=== PATIENT | female | born 1970 | race Caucasian/White ===

== ENCOUNTER 2020-04-06 14:17 | Emergency (ER) | payer MEDICAID ==
--- NOTE | 2020-04-06 16:10 | EDM.PDOC ---
ED HPI GENERAL MEDICAL PROBLEM - General Chief Complaint: Back Pain or Injury Stated Complaint: HIP AND PELVIS PAIN FELL 2 WEEKS AGO Time Seen by Provider: 04/06/20 14:18 Source of Information: Reports: Patient, RN Notes Reviewed History Limitations: Reports: No Limitations - History of Present Illness INITIAL COMMENTS - FREE TEXT/NARRATIVE: Patient is a 49-year-old female presenting to the emergency department with complaints of a 2-week history of lumbar and sacral pain with radiation down her bilateral legs as well as intermittent low back spasms. She states about 2 wee ks ago, she had a fall on the ice. She landed on her left side hitting her left elbow. She does not think that she hit her left hip very hard, however since that time she has had pain in her low back. She does have occasional numbness in her bilateral calfs, however this is normal for her. Pain radiates down the bilateral lower extremities. Denies any bowel or bladder dysfunction. She does have a history significant for spinal fusion in 2012. States this was done at the neurosurgery center in [place]. She does not have a primary care provider. She has been using Tylenol for the pain which she states sometimes works, but at times the pain gets too bad where Tylenol does not help. Lower Back Pain Score (Numeric/FACES): 8 Groin Pain Score (Numeric/FACES): 6 - Related Data Allergies Allergy/AdvReac Type Severity Reaction Status Date / Time metoclopramide [From Reglan] Allergy Severe Rash Verified 04/06/20 14:42 pseudoephedrine Allergy Severe Confusion Verified 04/06/20 14:42 [From Sudafed] Home Meds: Home Meds Cyclobenzaprine [Flexeril] 10 mg PO TID PRN #10 tab 04/06/20 [Rx] predniSONE [Prednisone] 20 mg PO ASDIRECTED #15 tablet 04/06/20 [Rx] Past Medical History Respiratory History: Reports: Asthma Other Respiratory History: dooes not use inhaler [employer] MECHANICAL History: Reports: Fibroids, Other (See Below) Other [employer]CH[employer] History: had partial hysterectomy-uterus removed; has problems with cysts Psychiatric History: Reports: Anxiety Social & Family History - Tobacco Use Tobacco Use Status *Q: Current Every Day Tobacco User Years of Tobacco use: 5 Packs/Tins Daily: 1 - Caffeine Use Caffeine Use: Reports: None - Recreational Drug Use Recreational Drug Use: No ED ROS GENERAL - Review of Systems Review Of Systems: See Below Constitutional: Reports: No Symptoms HEENT: Reports: No Symptoms Respiratory: Reports: No Symptoms Cardiovascular: Reports: No Symptoms Endocrine: Reports: No Symptoms GI/Abdominal: Reports: No Symptoms : Reports: No Symptoms Musculoskeletal: Reports: Back Pain, Leg Pain Skin: Reports: No Symptoms Neurological: Reports: No Symptoms Psychiatric: Reports: No Symptoms Hematologic/Lymphatic: Reports: No Symptoms Immunologic: Reports: No Symptoms ED EXAM,LOWER BACK PAIN/INJURY - Physical Exam Exam: See Below Exam Limited By: No Limitations General Appearance: Alert, WD/WN, No Apparent Distress Respiratory/Chest: No Respiratory Distress, Lungs Clear, Normal Breath Sounds, No Accessory Muscle Use, Chest Non-Tender Cardiovascular: Normal Peripheral Pulses, Regular Rate, Rhythm, No Edema, No Gallop, No JVD, No Murmur, No Rub GI/Abdominal: Normal Bowel Sounds, Soft, Non-Tender, No Organomegaly, No Distention, No Abnormal Bruit, No Mass Back Exam: Normal Inspection, Full Range of Motion, Paraspinal Tenderness (bilateral to L5-S3), Vertebral Tenderness (L5-S3), Other (Lateral SI joint tenderness, left worse than the right). No: CVA Tenderness (L), CVA Tenderness (R) Neurological: Alert, Normal Mood/Affect, Normal Dorsiflexion, CN II-XII Intact, Normal Plantar Flexion, Normal Gait, Normal Reflexes, No Motor/Sensory Deficits, Oriented x 3 Psychiatric: Normal Affect, Normal Mood Skin Exam: Warm, Dry, Intact, Normal Color, No Rash Course - Vital Signs Last Recorded V/S: Last Vital Signs Temp 98.1 F 04/06/20 14:48 Pulse 78 04/06/20 14:48 Resp 20 04/06/20 14:48 BP 134/90 04/06/20 14:48 Pulse Ox 97 04/06/20 14:48 - Re-Assessments/Exams Free Text/Narrative Re-Assessment/Exam: Patient is a 49-year-old female presenting to the emergency department with complaints of low back and pelvis pain radiating down her bilateral legs. Pain has been occurring since she fell 2 weeks ago. She has a history of lumbar fusion in 2012. She is concerned that her hardware may be damaged. She is had no bowel or bladder dysfunction. I have ordered x-rays of the pelvis, lumbar bar spine, and sacrum. 04/06/20 16:11 X-rays showed no acute abnormalities. 10 screws were visualized in L4-L5 and are appropriately placed. Discussed findings with patient. We will give her a course of prednisone as well as Flexeril for muscle spasms. I will send a referral to the clinic. She is unsure if her insurance covers [place] or [facility], therefore I will send a referral to Nessa Zuleta NP at [facility] as well as Soumya Galindo NP at [place]. She should follow-up with 1 of these providers next week. Discharge instructions as documented. Departure - Departure Time of Disposition: 16:13 Disposition: Home, Self-Care 01 Condition: Good Clinical Impression: Lumbar radiculopathy, acute - Discharge Information *PRESCRIPTION DRUG MONITORING PROGRAM REVIEWED*: No *COPY OF PRESCRIPTION DRUG MONITORING REPORT IN PATIENT CAR: No Prescriptions: Cyclobenzaprine [Flexeril] 10 mg PO TID PRN #10 tab PRN Reason: Muscle Spasm predniSONE [Prednisone] 20 mg PO ASDIRECTED #15 tablet Instructions: Radicular Pain Referrals: Nessa Loja NP [Nurse Practitioner] - Soumya Galindo NP [Ordering Only Provider] - Forms: ED Department Discharge Additional Instructions: You were seen in the emergency department today for 2-week history of low back pain with radiation down both legs. X-rays were completed of your lumbar spine, sacrum, and pelvis and showed no acute abnormalities. There is some degenerative changes. Your previous shira and screws were visualized and they are appropriately placed. He was started on a course of prednisone which is a steroid. You have also been provided Flexeril for muscle spasms. Take these medications as prescribed. Recommend intermittent heat to your low back. A [facility] as well as [facility]. Depending on which clinic your insurance covers, recommend that you call to schedule appointment with 1 of these providers for next week. Return to ER for any new or worsening symptoms of concern. Sepsis Event Note (ED) - Evaluation Sepsis Screening Result: No Definite Risk
--- NOTE | 2020-04-07 14:56 | CR ---
Sacrum and coccyx: AP, lateral views of the sacrum and coccyx were obtained. Slight posterior disc space narrowing at L5-S1. Trans-pedicle screws are seen at L4-5. Sacroiliac joints are normal. No acute fracture or subluxation is appreciated. Impression: 1. Degenerative change as noted on lumbar spine study. 2. Two-view sacrum and coccyx study is otherwise unremarkable. Diagnostic code #2 I agree with preliminary report from [facility], finalized on 04/06/20, 4:44 PM SLITTER PROCESSED FILM
--- NOTE | 2020-04-07 14:57 | CR ---
Pelvis: AP view of the pelvis was obtained. Comparison: No prior pelvis study is available. Prior lumbar spine surgery is noted. Joint spaces within both hips are maintained. No acute fracture or other abnormality is seen. Impression: 1. Prior lumbar spine surgery. 2. AP pelvis study is otherwise unremarkable. Diagnostic code #2 I agree with preliminary report from [facility], finalized on 04/06/20, 4:45 PM MECHANICAL DEVELOPMENT ENGINEER
--- NOTE | 2020-04-07 15:02 | CR ---
Lumbar spine: AP, lateral and coned-down lateral view centered to the lumbosacral junction are obtained. Comparison: No previous study. Previous surgery noted at L4-5 with intervertebral disc fixation as well as posterior fixation. Mild posterior disc space narrowing at L5-S1 is seen. Mild anterior disc space narrowing at L3-4. Minimal disc space narrowing at L2-3 as well as mild disc space narrowing at L1-2. Scattered endplate osteophytes are noted. Pedicles are intact. Mild subluxation is noted at L3-4 compatible with degenerative apophyseal change. Slight retrolisthesis of L5 on S1 is noted. Impression: 1. Previous surgery with mild diffuse degenerative change. 2. Nothing acute is appreciated on three-view lumbar spine study. Diagnostic code #2 I agree with preliminary report from [facility], finalized on 04/06/20, 4:43 PM CHILDREN'S SERVICE WORKER Diagnostic code #2
== END 2020-04-06 16:32 | disposition home or self-care (01) ==
LOC: JD.ED 14:17
DX: M54.16 Radiculopathy, lumbar region (principal); J45.909 Unspecified asthma, uncomplicated; F17.210 Nicotine dependence, cigarettes, uncomplicated; Z88.8 Allergy status to other drugs, medicaments and biological substances
CPT/HCPCS: 72100; 72100-26; 72170; 72170-26; 72220; 72220-26; 99283; 99284

== ENCOUNTER 2021-10-24 11:46 | Emergency (ER) | payer MEDICAID, OTHER | END 2021-10-24 13:00 | disposition home or self-care (01) | LOC: JD.ED 11:46 | DX: S43.402A Unspecified sprain of left shoulder joint, initial encounter (principal); F17.210 Nicotine dependence, cigarettes, uncomplicated; Z88.8 Allergy status to other drugs, medicaments and biological substances; Z79.899 Other long term (current) drug therapy; X50.0XXA Overexertion from strenuous movement or load, initial encounter | CPT/HCPCS: 99283 ==

== ENCOUNTER 2023-11-22 11:32 | Emergency (ER) | payer BC, OTHER ==
[2023-11-22] MEDS: Ondansetron 4 MG Tab.DIS PO ONE (12:46)
[2023-11-22] MEDS: Lidocaine 1% 10 ML MDV INJECT ONE (13:41)
[2023-11-22] MEDS: Bupivacaine 0.5% 10 ML SDV INJECT ONE (13:41)
[2023-11-22] MEDS: Diphtheria,Pertussis(Acell),Tetanus Vaccine 0.5 ML Syringe IM ONE (14:45)
== END 2023-11-22 14:40 | disposition home or self-care (01) ==
LOC: JD.ED 11:32
DX: S61.210A Laceration without foreign body of right index finger without damage to nail, initial encounter (principal); S61.312A Laceration without foreign body of right middle finger with damage to nail, initial encounter; F17.210 Nicotine dependence, cigarettes, uncomplicated; Z79.899 Other long term (current) drug therapy; Z88.8 Allergy status to other drugs, medicaments and biological substances; X58.XXXA Exposure to other specified factors, initial encounter
CPT/HCPCS: 12002; 90471; 90715; 99283; A9270; J0665; J3490